=== PATIENT | male | born 1970 | race African-American/Black ===

== ENCOUNTER 2018-04-30 16:51 | Emergency (ER) | payer SELFPAY ==
[~2018-04-30] VITALS: Ht 172.7 cm; Wt 77.5 kg
[2018-05-01 00:27] VITALS: BP 121/67
== END 2018-05-01 00:28 | disposition home or self-care (01) ==
LOC: ER 16:51
DX: S60.211A Contusion of right wrist, initial encounter (principal); V18.0XXA Pedal cycle driver injured in noncollision transport accident in nontraffic accident, initial encounter; Y93.55 Activity, bike riding; Y92.89 Other specified places as the place of occurrence of the external cause
CPT/HCPCS: 29125; 73110; 99283

== ENCOUNTER 2021-01-01 06:02 | Emergency (ER) | payer OTHER ==
[~2021-01-01] VITALS: Ht 172.7 cm; Wt 77.0 kg
[2021-01-01 07:30] LABS: BASOPHILS % 0.6 % (0.0-2.0); EOSINOPHILS % 0.9 % (0.0-5.0); HEMATOCRIT. 43.9 % (42.0-52.0); HEMOGLOBIN. 14.7 g/dL (14.0-18.0); LYMPHOCYTES % 19.7 % (20.0-50.0); MEAN CORPUSCULAR HEMOGLOBIN 31.7 pg (28.0-32.0); MEAN CORPUSCULAR VOLUME 94.5 fL (80.0-94.0); MEAN PLATELET VOLUME 7.8 fl (7.4-10.4); MONOCYTES % 6.2 % (2.0-8.0); NEUTROPHILS % 72.6 % (40.0-76.0); PLATELET 277 x1000/uL (130-400); RED BLOOD CELL COUNT 4.65 mill/uL (4.7-6.1); RED CELL DISTRIBUTION WIDTH 14.2 % (11.6-14.6)
[2021-01-01 07:40] LABS: CLARITY URINE CLEAR (CLEAR); COLOR URINE YELLOW (YELLOW); KETONES URINE NEGATIVE (NEGATIVE); LEUKOCYTE ESTERASE URINE NEGATIVE (NEGATIVE); NITRITE URINE NEGATIVE (NEGATIVE); OCCULT BLOOD URINE NEGATIVE (NEGATIVE); PROTEIN URINE NEGATIVE (NEGATIVE); SPECIFIC GRAVITY URINE 1.012 (1.005-1.030); UROBILINOGEN URINE 0.2 E.U./dL (0.2-1.0)
[2021-01-01 07:41] LABS: CHLORIDE 110 mEq/L (98-107)
[2021-01-01] MEDS ORDERED: IBUP-2029 MT (10:09)
[2021-01-01 10:41] VITALS: BP 117/57
== END 2021-01-01 11:00 | disposition home or self-care (01) ==
LOC: ER 06:02
DX: N13.30 Unspecified hydronephrosis (principal)
CPT/HCPCS: 36415; 74176; 76705; 80053; 81003; 85025; 99285

== ENCOUNTER 2021-05-01 19:20 | Inpatient (IN) | payer OTHER ==
[~2021-05-01] VITALS: Ht 170.2 cm; Wt 79.8 kg
[~2021-05-01 19:20] MED LIST: IBUP-2029 MT
[2021-05-01] MEDS ORDERED: SODIUM CHLORIDE 0.9% 1,000 ML IV ONE (22:30)
[2021-05-01 22:47] LABS: BASOPHILS % 0.3 % (0.0-2.0); EOSINOPHILS % 0.3 % (0.0-5.0); HEMATOCRIT. 46.6 % (42.0-52.0); HEMOGLOBIN. 15.9 g/dL (14.0-18.0); LYMPHOCYTES % 9.2 % (20.0-50.0); MEAN CORPUSCULAR VOLUME 90.9 fL (80.0-94.0); MONOCYTES % 7.6 % (2.0-8.0); NEUTROPHILS % 82.6 % (40.0-76.0); PLATELET 284 x1000/uL (130-400); RED BLOOD CELL COUNT 5.13 mill/uL (4.7-6.1); RED CELL DISTRIBUTION WIDTH 14.4 % (11.6-14.6)
[2021-05-01 22:54] LABS: CLARITY URINE CLEAR (CLEAR); COLOR URINE YELLOW (YELLOW); KETONES URINE 1+ (NEGATIVE); LEUKOCYTE ESTERASE URINE NEGATIVE (NEGATIVE); NITRITE URINE NEGATIVE (NEGATIVE); OCCULT BLOOD URINE 2+ (NEGATIVE); PH URINE 5.5 (4.5-8.0); PROTEIN URINE 3+ (NEGATIVE); SPECIFIC GRAVITY URINE 1.034 (1.005-1.030); UROBILINOGEN URINE 0.2 E.U./dL (0.2-1.0)
[2021-05-01 22:55] LABS: CHLORIDE 105 mEq/L (98-107)
[2021-05-01] MEDS ORDERED: METOCLOPRAMIDE HCL 10MG/2ML VIAL IV ONE (23:15)
[2021-05-02] MEDS ORDERED: MORPHINE SULFATE 4 MG/ML CPJ (NOT FOR IM USE) IV ONE (02:00)
[2021-05-02] MEDS ORDERED: CEFTRIAXONE 1 G PREMIX 50 ML IV ONE (02:45)
[2021-05-02] MEDS ORDERED: IOHEXOL-300 100 ML BOTTLE ONE (06:33)
[2021-05-02] MEDS ORDERED: ACETAMINOPHEN 325MG TABLET PO PRN (08:30)
[2021-05-02] MEDS ORDERED: SODIUM CHLORIDE 0.9% 1,000 ML IV SCH (08:30)
[2021-05-02] MEDS ORDERED: DOCUSATE SODIUM 100MG CAPSULE PO PRN (08:30)
[2021-05-02] MEDS ORDERED: HYDROCODONE/ACETAMINOPHEN 5/325MG TABLET PO PRN (08:30)
[2021-05-02] MEDS ORDERED: IPRATROPIUM/ALBUTEROL 0.5-3(2.5)MG/3ML NEB HHN PRN (08:30)
[2021-05-02] MEDS ORDERED: MORPHINE SULFATE 2 MG/ML CPJ (NOT FOR IM USE) IV PRN (08:30)
[2021-05-02] MEDS ORDERED: MAGNESIUM/ALUMINUM HYDROXIDE/SIMETHICONE 30ML UDC PO PRN (08:30)
[2021-05-02] MEDS ORDERED: CLONIDINE 0.1MG TABLET PO PRN (08:30)
[2021-05-02] MEDS ORDERED: ONDANSETRON HCL 4MG/2ML INJ IV PRN (08:30)
[2021-05-02] MEDS ORDERED: NALOXONE HCL 0.4MG/ML VIAL IV PRN (08:45)
[2021-05-02 09:37] LABS: *AMPHETAMINES SCREEN URINE NEGATIVE (NEGATIVE)
[2021-05-02 09:38] LABS: *BARBITURATES SCREEN URINE NEGATIVE (NEGATIVE); *BENZODIAZEPINES SCREEN URINE NEGATIVE (NEGATIVE); *COCAINE SCREEN URINE NEGATIVE (NEGATIVE); METHADONE URINE SCREEN NEGATIVE (NEGATIVE); OPIATES URINE SCREEN PRESUMTIVE POSITIVE (NEGATIVE)
[2021-05-02 09:39] LABS: CANNABINOID URINE SCREEN PRESUMTIVE POSITIVE (NEGATIVE); PHENCYCLIDINE URINE SCREEN NEGATIVE (NEGATIVE)
[2021-05-02 10:00] VITALS: BP 120/69
[2021-05-02 13:01] LABS: BASOPHILS % 0.2 % (0.0-2.0); HEMATOCRIT. 43.6 % (42.0-52.0); HEMOGLOBIN. 14.9 g/dL (14.0-18.0); LYMPHOCYTES % 8.2 % (20.0-50.0); MEAN CORPUSCULAR HEMOGLOBIN 30.8 pg (28.0-32.0); MEAN CORPUSCULAR VOLUME 90.2 fL (80.0-94.0); MEAN PLATELET VOLUME 8.2 fl (7.4-10.4); MONOCYTES % 6.9 % (2.0-8.0); NEUTROPHILS % 84.7 % (40.0-76.0); PLATELET 253 x1000/uL (130-400); RED BLOOD CELL COUNT 4.83 mill/uL (4.7-6.1); RED CELL DISTRIBUTION WIDTH 14.2 % (11.6-14.6)
[2021-05-02 13:34] LABS: CHLORIDE 107 mEq/L (98-107)
[2021-05-02 13:41] LABS: ETHANOL BLOOD < 10 mg/dL
[2021-05-02 13:45] LABS: HDL CHOLESTEROL 64 mg/dL (40-59); LDL CHOLESTEROL 160 mg/dL (5-100)
[2021-05-02 13:54] LABS: HEPATITIS B SURFACE ANTIGEN NEGATIVE
[2021-05-02] MEDS ORDERED: LACTULOSE 20G/30ML UDC PO PRN (14:00)
[2021-05-02] MEDS: DEXT 5%/0.9% NACL 1,000 ML IV SCH (14:45)
[2021-05-02] MEDS ORDERED: GLYCERIN ADULT SUPPOSITORY PR NR (15:30)
[2021-05-02] MEDS: HYDROCODONE/ACETAMINOPHEN 5/325MG TABLET PO PRN (15:31)
[2021-05-02 16:00] VITALS: BP 126/73
[2021-05-02] MEDS: PANTOPRAZOLE SODIUM 40 MG/VIAL IV SCH (16:39)
[2021-05-02 18:11] LABS: CREATINE KINASE MB FRACTION 4.6 ng/mL (0.5-3.6)
[2021-05-02 18:23] LABS: CREATINE KINASE 1218 IU/L (39-308)
[2021-05-02 20:00] VITALS: BP 128/91
[2021-05-02] MEDS: CEFTRIAXONE 1,000 MG in DEXTROSE 5% WATER 50 ML IV SCH (22:30)
[2021-05-03] MEDS: DEXT 5%/0.9% NACL 1,000 ML IV SCH ×2 (00:45→10:15)
[2021-05-03 00:55] LABS: CREATINE KINASE MB FRACTION 3.7 ng/mL (0.5-3.6)
[2021-05-03 01:04] LABS: CREATINE KINASE 1153 IU/L (39-308)
[2021-05-03 04:00] VITALS: BP 119/73
[2021-05-03] MEDS ORDERED: NA PHOS,M-B/NA PHOS,DI-BA ENEMA 118ML PR ONE (04:30)
[2021-05-03 07:13] LABS: BASOPHILS % 0.2 % (0.0-2.0); EOSINOPHILS % 0.1 % (0.0-5.0); HEMATOCRIT. 43.5 % (42.0-52.0); HEMOGLOBIN. 14.7 g/dL (14.0-18.0); LYMPHOCYTES % 12.5 % (20.0-50.0); MEAN CORPUSCULAR HEMOGLOBIN 30.7 pg (28.0-32.0); MEAN CORPUSCULAR VOLUME 91.1 fL (80.0-94.0); MEAN PLATELET VOLUME 8.3 fl (7.4-10.4); MONOCYTES % 8.1 % (2.0-8.0); NEUTROPHILS % 79.1 % (40.0-76.0); PLATELET 255 x1000/uL (130-400); RED BLOOD CELL COUNT 4.78 mill/uL (4.7-6.1); RED CELL DISTRIBUTION WIDTH 13.9 % (11.6-14.6)
[2021-05-03 07:34] LABS: CHLORIDE 104 mEq/L (98-107)
[2021-05-03 08:00] VITALS: BP 132/74
[2021-05-03] MEDS: PANTOPRAZOLE SODIUM 40 MG/VIAL IV SCH ×2 (08:44→17:00)
[2021-05-03] MEDS: DOCUSATE SODIUM 100MG CAPSULE PO SCH ×2 (08:45→18:15)
[2021-05-03] MEDS ORDERED: POTASSIUM CHLORIDE 20MEQ TABLET SR PO SCH (09:00)
[2021-05-03 12:00] VITALS: BP 128/90
[2021-05-03] MEDS: HYDROCODONE/ACETAMINOPHEN 10/325MG TABLET PO PRN (12:56)
[2021-05-03] MEDS: METOCLOPRAMIDE HCL 10MG/2ML VIAL IV SCH ×2 (12:56→18:15)
[2021-05-03 16:00] VITALS: BP 135/77
[2021-05-03 20:00] VITALS: BP 145/80
[2021-05-04] VITALS: BP 140/80
[2021-05-04] MEDS: CEFTRIAXONE 1,000 MG in DEXTROSE 5% WATER 50 ML IV SCH ×2 (00:37→21:24)
[2021-05-04] MEDS: METOCLOPRAMIDE HCL 10MG/2ML VIAL IV SCH ×5 (00:37→23:23)
[2021-05-04 04:00] VITALS: BP 133/79
[2021-05-04] MEDS: DEXT 5%/0.9% NACL 1,000 ML IV SCH ×2 (06:40→18:17)
[2021-05-04 08:00] VITALS: BP 110/72
[2021-05-04] MEDS: PANTOPRAZOLE SODIUM 40 MG/VIAL IV SCH ×2 (09:05→18:17)
[2021-05-04] MEDS: DOCUSATE SODIUM 100MG CAPSULE PO SCH ×2 (09:05→18:18)
[2021-05-04 11:55] LABS: BASOPHILS % 0.4 % (0.0-2.0); EOSINOPHILS % 0.3 % (0.0-5.0); HEMOGLOBIN. 15.1 g/dL (14.0-18.0); LYMPHOCYTES % 18.1 % (20.0-50.0); MEAN CORPUSCULAR HEMOGLOBIN 30.3 pg (28.0-32.0); MEAN CORPUSCULAR VOLUME 92.4 fL (80.0-94.0); MEAN PLATELET VOLUME 8.2 fl (7.4-10.4); MONOCYTES % 10.1 % (2.0-8.0); NEUTROPHILS % 71.1 % (40.0-76.0); PLATELET 249 x1000/uL (130-400); RED BLOOD CELL COUNT 4.98 mill/uL (4.7-6.1); RED CELL DISTRIBUTION WIDTH 14.1 % (11.6-14.6)
[2021-05-04 12:00] VITALS: BP 135/78
[2021-05-04 12:24] LABS: CHLORIDE 102 mEq/L (98-107)
[2021-05-04] MEDS ORDERED: BISACODYL 10MG SUPP PR PRN (12:30)
[2021-05-04 12:40] LABS: CREATINE KINASE 371 IU/L (39-308)
[2021-05-04 16:00] VITALS: BP 128/72
[2021-05-04 20:00] VITALS: BP 129/78
[2021-05-04] MEDS ORDERED: POTASSIUM CHLORIDE 20MEQ TABLET SR PO NR (20:30)
[2021-05-05] VITALS: BP 121/52
[2021-05-05] MEDS: HYDROCODONE/ACETAMINOPHEN 5/325MG TABLET PO PRN (03:04)
[2021-05-05] MEDS: DEXT 5%/0.9% NACL 1,000 ML IV SCH ×3 (03:05→22:45)
[2021-05-05 03:15] VITALS: BP 146/81
[2021-05-05] MEDS: METOCLOPRAMIDE HCL 10MG/2ML VIAL IV SCH ×3 (05:15→18:26)
[2021-05-05 08:00] VITALS: BP 150/91
[2021-05-05 08:12] LABS: BASOPHILS % 0.4 % (0.0-2.0); EOSINOPHILS % 0.2 % (0.0-5.0); HEMATOCRIT. 43.3 % (42.0-52.0); HEMOGLOBIN. 14.8 g/dL (14.0-18.0); MEAN CORPUSCULAR HEMOGLOBIN 31.2 pg (28.0-32.0); MEAN PLATELET VOLUME 8.1 fl (7.4-10.4); MONOCYTES % 11.5 % (2.0-8.0); NEUTROPHILS % 69.9 % (40.0-76.0); PLATELET 273 x1000/uL (130-400); RED BLOOD CELL COUNT 4.75 mill/uL (4.7-6.1); RED CELL DISTRIBUTION WIDTH 13.9 % (11.6-14.6)
[2021-05-05 08:50] LABS: CHLORIDE 104 mEq/L (98-107)
[2021-05-05] MEDS: PANTOPRAZOLE SODIUM 40 MG/VIAL IV SCH ×2 (09:13→16:45)
[2021-05-05] MEDS: DOCUSATE SODIUM 100MG CAPSULE PO SCH ×2 (09:13→16:45)
[2021-05-05] MEDS: HYDROCODONE/ACETAMINOPHEN 10/325MG TABLET PO PRN (09:15)
[2021-05-05] MEDS ORDERED: KETOROLAC 30MG/ML VIAL IV PRN (15:30)
[2021-05-05] MEDS ORDERED: MAGNESIUM CITRATE 300ML SOLUTION PO NR (16:30)
[2021-05-05] MEDS ORDERED: NA PHOS,M-B/NA PHOS,DI-BA ENEMA 118ML PR NR (16:30)
[2021-05-05] MEDS ORDERED: MAGNESIUM/ALUMINUM HYDROXIDE/SIMETHICONE 30ML UDC PO NR (19:15)
[2021-05-05] MEDS ORDERED: TRAMADOL 50MG TABLET PO PRN (19:15)
[2021-05-05 20:00] VITALS: BP 141/89
[2021-05-05] MEDS: CEFTRIAXONE 1,000 MG in DEXTROSE 5% WATER 50 ML IV SCH (20:32)
[2021-05-05] MEDS ORDERED: VISCOUS LIDOCAINE 2% 15 ML UDC MM NR (21:00)
[2021-05-06] VITALS: BP 118/70
[2021-05-06] MEDS: METOCLOPRAMIDE HCL 10MG/2ML VIAL IV SCH ×5 (00:45→23:57)
[2021-05-06 04:00] VITALS: BP 148/86
[2021-05-06 07:24] LABS: BASOPHILS % 0.4 % (0.0-2.0); EOSINOPHILS % 0.3 % (0.0-5.0); HEMATOCRIT. 42.4 % (42.0-52.0); LYMPHOCYTES % 19.5 % (20.0-50.0); MEAN CORPUSCULAR HEMOGLOBIN 30.5 pg (28.0-32.0); MEAN CORPUSCULAR VOLUME 92.4 fL (80.0-94.0); MEAN PLATELET VOLUME 7.9 fl (7.4-10.4); MONOCYTES % 10.4 % (2.0-8.0); NEUTROPHILS % 69.4 % (40.0-76.0); PLATELET 274 x1000/uL (130-400); RED BLOOD CELL COUNT 4.59 mill/uL (4.7-6.1); RED CELL DISTRIBUTION WIDTH 13.4 % (11.6-14.6)
[2021-05-06 08:00] VITALS: BP_SYST 0; BP_SYST 121; BP_SYST 125; BP_DIAS 0; BP_DIAS 67; BP_DIAS 81
[2021-05-06] MEDS: PANTOPRAZOLE SODIUM 40 MG/VIAL IV SCH ×2 (08:35→17:36)
[2021-05-06] MEDS: ACETAMINOPHEN 325MG TABLET PO PRN ×2 (08:36→13:39)
[2021-05-06] MEDS: DOCUSATE SODIUM 100MG CAPSULE PO SCH ×2 (08:37→17:36)
[2021-05-06] MEDS: DEXT 5%/0.9% NACL 1,000 ML IV SCH ×2 (08:44→18:46)
[2021-05-06 09:52] LABS: CHLORIDE 106 mEq/L (98-107)
[2021-05-06 12:00] VITALS: BP 125/67
[2021-05-06 16:00] VITALS: BP 126/69
[2021-05-06 20:00] VITALS: BP 122/66
[2021-05-06] MEDS: CEFTRIAXONE 1,000 MG in DEXTROSE 5% WATER 50 ML IV SCH (22:25)
[2021-05-07] VITALS: BP 114/76
[2021-05-07] MEDS: DEXT 5%/0.9% NACL 1,000 ML IV SCH ×2 (03:47→09:40)
[2021-05-07 04:00] VITALS: BP 118/72
[2021-05-07] MEDS: METOCLOPRAMIDE HCL 10MG/2ML VIAL IV SCH ×2 (06:04→12:10)
[2021-05-07 07:52] LABS: BASOPHILS % 0.5 % (0.0-2.0); EOSINOPHILS % 0.6 % (0.0-5.0); HEMOGLOBIN. 13.2 g/dL (14.0-18.0); MEAN CORPUSCULAR VOLUME 91.7 fL (80.0-94.0); MEAN PLATELET VOLUME 8.2 fl (7.4-10.4); MONOCYTES % 8.2 % (2.0-8.0); NEUTROPHILS % 77.7 % (40.0-76.0); PLATELET 279 x1000/uL (130-400); RED BLOOD CELL COUNT 4.25 mill/uL (4.7-6.1); RED CELL DISTRIBUTION WIDTH 13.5 % (11.6-14.6)
[2021-05-07 08:00] VITALS: BP 121/74
[2021-05-07 08:50] LABS: CHLORIDE 105 mEq/L (98-107)
[2021-05-07 08:54] LABS: AMYLASE 125 IU/L (25-115)
[2021-05-07] MEDS: PANTOPRAZOLE SODIUM 40 MG/VIAL IV SCH (09:34)
[2021-05-07] MEDS: DOCUSATE SODIUM 100MG CAPSULE PO SCH (09:34)
[2021-05-07 12:00] VITALS: BP 125/71
[2021-05-07] MEDS ORDERED: POLY119P2 MT (12:08)
[2021-05-07] MEDS ORDERED: DOCU100T MT (12:08)
[2021-05-07] MEDS ORDERED: PROT40 MT (12:08)
[2021-05-07 12:39] VITALS: BP 125/71
== END 2021-05-07 14:30 | disposition home or self-care (01) | DRG 389 ==
LOC: ER 19:20 → MICUSO 05-02 03:25 → 4WST 05-02 10:28 → 6EST 05-05 22:40
PROVIDERS: ADMIT Internal Medicine; ATTEND Internal Medicine
DX: K56.41 Fecal impaction (principal); Q62.11 Congenital occlusion of ureteropelvic junction; N13.6 Pyonephrosis; R06.6 Hiccough; D72.829 Elevated white blood cell count, unspecified; R74.01 Elevation of levels of liver transaminase levels; F12.90 Cannabis use, unspecified, uncomplicated; R31.9 Hematuria, unspecified; E78.00 Pure hypercholesterolemia, unspecified; Z20.822 Contact with and (suspected) exposure to COVID-19; K21.9 Gastro-esophageal reflux disease without esophagitis; K29.70 Gastritis, unspecified, without bleeding; Z79.1 Long term (current) use of non-steroidal anti-inflammatories (NSAID); Z79.899 Other long term (current) drug therapy; Z86.19 Personal history of other infectious and parasitic diseases
CPT/HCPCS: 36415; 71045; 74018; 74177; 76770; 80048; 80053; 80061; 80305; 80320; 81003; 82150; 82550; 82553; 83036; 83605; 83880; 84145; 84443; 84484; 85025; 86705; 86709; 86803; 87340; 87426; 93005; 93970; 99285; C1893; C9113; J0696; J1885; J2270; J2765; J7030; J7042; J7060; Q9967; G0480

== ENCOUNTER 2021-07-30 05:42 | Emergency (ER) | payer OTHER ==
[~2021-07-30] VITALS: Ht 172.7 cm; Wt 78.5 kg
[~2021-07-30 05:42] MED LIST changes: +DOCU100T MT; -IBUP-2029 MT; +POLY119P2 MT; +PROT40 MT
[2021-07-30 05:50] VITALS: BP 142/92
[2021-07-30] MEDS ORDERED: ONDANSETRON HCL 4MG/2ML INJ IV STA (06:15)
[2021-07-30] MEDS ORDERED: KETOROLAC 30MG/ML VIAL IV STA (06:15)
[2021-07-30] MEDS ORDERED: SODIUM CHLORIDE 0.9% 1,000 ML IV ONE (06:15)
[2021-07-30 06:31] LABS: BASOPHILS % 0.5 % (0.0-2.0); EOSINOPHILS % 0.2 % (0.0-5.0); HEMATOCRIT. 42.4 % (42.0-52.0); HEMOGLOBIN. 14.3 g/dL (14.0-18.0); LYMPHOCYTES % 11.2 % (20.0-50.0); MEAN CORPUSCULAR VOLUME 92.2 fL (80.0-94.0); MEAN PLATELET VOLUME 8.1 fl (7.4-10.4); MONOCYTES % 5.6 % (2.0-8.0); NEUTROPHILS % 82.5 % (40.0-76.0); PLATELET 255 x1000/uL (130-400); RED CELL DISTRIBUTION WIDTH 14.3 % (11.6-14.6)
[2021-07-30 06:55] LABS: CLARITY URINE CLEAR (CLEAR); COLOR URINE YELLOW (YELLOW); KETONES URINE TRACE (NEGATIVE); LEUKOCYTE ESTERASE URINE NEGATIVE (NEGATIVE); NITRITE URINE NEGATIVE (NEGATIVE); OCCULT BLOOD URINE NEGATIVE (NEGATIVE); PROTEIN URINE 1+ (NEGATIVE); SPECIFIC GRAVITY URINE 1.027 (1.005-1.030); UROBILINOGEN URINE 0.2 E.U./dL (0.2-1.0)
[2021-07-30 07:09] LABS: CHLORIDE 111 mEq/L (98-107)
[2021-07-30 07:11] LABS: ETHANOL BLOOD < 10 mg/dL
[2021-07-30 07:27] LABS: *AMPHETAMINES SCREEN URINE NEGATIVE (NEGATIVE); *BARBITURATES SCREEN URINE NEGATIVE (NEGATIVE); *BENZODIAZEPINES SCREEN URINE NEGATIVE (NEGATIVE); *COCAINE SCREEN URINE NEGATIVE (NEGATIVE); METHADONE URINE SCREEN NEGATIVE (NEGATIVE); OPIATES URINE SCREEN NEGATIVE (NEGATIVE)
[2021-07-30 07:29] LABS: CANNABINOID URINE SCREEN PRESUMTIVE POSITIVE (NEGATIVE); PHENCYCLIDINE URINE SCREEN NEGATIVE (NEGATIVE)
[2021-07-30] MEDS ORDERED: ONDA4TAB5 MT (08:28)
[2021-07-30] MEDS ORDERED: OMEP40CA20 MT (08:28)
== END 2021-07-30 08:40 | disposition home or self-care (01) ==
LOC: ER 05:42
DX: R10.9 Unspecified abdominal pain (principal); F12.10 Cannabis abuse, uncomplicated
CPT/HCPCS: 36415; 74176; 80053; 80305; 80320; 81003; 83690; 85025; 96361; 96374; 96375; 99284; J1885; J2405; J7030; G0480

== ENCOUNTER 2022-12-22 07:32 | Inpatient (IN) | payer SELFPAY ==
[~2022-12-22] VITALS: Ht 175.3 cm; Wt 88.0 kg
[~2022-12-22 07:32] MED LIST changes: +OMEP40CA20 MT; +ONDA4TAB5 MT
[2022-12-22 08:09] LABS: BASOPHILS % 0.4 % (0.0-2.0); EOSINOPHILS % 0.4 % (0.0-5.0); HEMATOCRIT. 46.1 % (42.0-52.0); HEMOGLOBIN. 15.6 g/dL (14.0-18.0); LYMPHOCYTES % 13.3 % (20.0-50.0); MEAN CORPUSCULAR HEMOGLOBIN 31.1 pg (28.0-32.0); MEAN CORPUSCULAR HGB CONC 33.9 g/dL (31.0-37.0); MEAN CORPUSCULAR VOLUME 91.7 fL (80.0-94.0); MEAN PLATELET VOLUME 7.9 fl (7.4-10.4); MONOCYTES % 6.1 % (2.0-8.0); NEUTROPHILS % 79.8 % (40.0-76.0); PLATELET 304 x1000/uL (130-400); RED BLOOD CELL COUNT 5.02 mill/uL (4.7-6.1); RED CELL DISTRIBUTION WIDTH 14.5 % (11.6-14.6); WHITE BLOOD COUNT 16.7 x1000/uL (4.5-11.0)
[2022-12-22 08:32] LABS: CHLORIDE 109 mEq/L (98-107); INDEX HEMOLYSI 1 (1-3); INDEX ICTERIC 1 (1-4); INDEX LIPEMIC 1 (1-3); POTASSIUM 3.9 mEq/L (3.5-5.1); SODIUM 137 mEq/L (136-145)
[2022-12-22 08:39] LABS: ALANINE AMINOTRANSFERASE 32 IU/L (13-61); ALBUMIN 4.1 g/dL (3.4-5.0); ASPARTATE AMINOTRANSFERASE 25 IU/L (15-37); BILIRUBIN TOTAL 0.5 mg/dL (0.1-1.0); CALCIUM 9.4 mg/dL (8.5-10.1); CARBON DIOXIDE 21 mEq/L (21-32); CREATININE 1.2 mg/dL (0.6-1.3); GLUCOSE 118 mg/dL (70-105); PROTEIN TOTAL 8.5 g/dL (6.0-8.3); UREA NITROGEN BLOOD 15 mg/dL (7-21)
[2022-12-22] MEDS ORDERED: MORPHINE SULFATE 4 MG/ML CPJ (NOT FOR IM USE) IV STA (09:44)
[2022-12-22] MEDS ORDERED: KETOROLAC 60MG/2ML VIAL IM STA (09:44)
[2022-12-22] MEDS ORDERED: ONDANSETRON 4MG ODT PO STA (09:44)
[2022-12-22] MEDS ORDERED: SODIUM CHLORIDE 0.9% 1,000 ML IV ONE (09:45)
[2022-12-22] MEDS ORDERED: ONDANSETRON 4MG ODT PO NR (14:45)
[2022-12-22] MEDS ORDERED: MORPHINE SULFATE 4 MG/ML CPJ (NOT FOR IM USE) IV NR (14:45)
[2022-12-22] MEDS ORDERED: PANTOPRAZOLE SODIUM 40 MG/VIAL IV NR (14:45)
[2022-12-22 15:58] LABS: CLARITY URINE CLEAR (CLEAR); COLOR URINE DARK YELLOW (YELLOW); GLUCOSE URINE NEGATIVE (NEGATIVE); KETONES URINE 3+ (NEGATIVE); LEUKOCYTE ESTERASE URINE TRACE (NEGATIVE); NITRITE URINE NEGATIVE (NEGATIVE); OCCULT BLOOD URINE NEGATIVE (NEGATIVE); PROTEIN URINE 2+ (NEGATIVE); SPECIFIC GRAVITY URINE 1.038 (1.005-1.030)
[2022-12-22 16:00] LABS: WBC URINE 0-2 /hpf (0-2); YEAST URINE NONE SEEN
[2022-12-22 16:17] LABS: BACTERIA URINE 1+; RBC URINE 0-2 /hpf (0-2); SQUAMOUS EPITHELIAL CELL URINE FEW /lpf (RARE/1+)
[2022-12-22 16:18] LABS: MUCUS URINE 1+ /lpf (NONE/TRACE)
[2022-12-22 17:39] LABS: TROPONIN I HIGH SENSITIVITY 7 ng/L (<78)
[2022-12-22] MEDS ORDERED: ONDANSETRON HCL 4MG/2ML INJ IV PRN (22:15)
[2022-12-22] MEDS ORDERED: MORPHINE SULFATE 2 MG/ML CPJ (NOT FOR IM USE) IV NR (22:15)
[2022-12-22] MEDS ORDERED: NALOXONE HCL 0.4MG/ML VIAL IV PRN (22:30)
[2022-12-22 23:00] VITALS: BP 146/85; PULSE 69; RESP 18; TEMP 98.8
[2022-12-22] MEDS: PIPERACILLIN/TAZOBACTAM 3.375 G in DEXTROSE 5% WATER 50 ML IV SCH (23:58)
[2022-12-23] VITALS: BP 148/90; PULSE 70; RESP 19; TEMP 97.7
[2022-12-23 04:00] VITALS: BP 138/81; PULSE 68; RESP 19; TEMP 98.1
[2022-12-23] MEDS: HYDROCODONE/ACETAMINOPHEN 10/325MG TABLET PO PRN ×2 (05:59→17:05)
[2022-12-23 07:55] LABS: HEMATOCRIT. 46.1 % (42.0-52.0); HEMOGLOBIN. 15.1 g/dL (14.0-18.0); MEAN CORPUSCULAR HEMOGLOBIN 30.2 pg (28.0-32.0); MEAN CORPUSCULAR HGB CONC 32.9 g/dL (31.0-37.0); MEAN CORPUSCULAR VOLUME 91.9 fL (80.0-94.0); RED BLOOD CELL COUNT 5.02 mill/uL (4.7-6.1); RED CELL DISTRIBUTION WIDTH 14.9 % (11.6-14.6); WHITE BLOOD COUNT 14.3 x1000/uL (4.5-11.0)
[2022-12-23 07:56] LABS: LYMPHOCYTES % 8.4 % (20.0-50.0); MEAN PLATELET VOLUME 8.6 fl (7.4-10.4); MONOCYTES % 8.6 % (2.0-8.0); PLATELET 300 x1000/uL (130-400)
[2022-12-23 08:00] VITALS: BP 137/87; PULSE 84; RESP 21; TEMP 97.1
[2022-12-23 08:34] LABS: CHLORIDE 109 mEq/L (98-107); INDEX HEMOLYSI 1 (1-3); INDEX ICTERIC 1 (1-4); INDEX LIPEMIC 1 (1-3); POTASSIUM 3.9 mEq/L (3.5-5.1); SODIUM 137 mEq/L (136-145)
[2022-12-23 08:49] LABS: ALANINE AMINOTRANSFERASE 31 IU/L (13-61); ALBUMIN 4.2 g/dL (3.4-5.0); AMYLASE 78 IU/L (25-115); ASPARTATE AMINOTRANSFERASE 27 IU/L (15-37); BILIRUBIN DIRECT < 0.1 mg/dL (0.0-0.2); BILIRUBIN TOTAL 0.5 mg/dL (0.1-1.0); CALCIUM 9.9 mg/dL (8.5-10.1); CARBON DIOXIDE 24 mEq/L (21-32); CREATININE 0.9 mg/dL (0.6-1.3); GLUCOSE 128 mg/dL (70-105); PROTEIN TOTAL 8.8 g/dL (6.0-8.3); UREA NITROGEN BLOOD 21 mg/dL (7-21)
[2022-12-23] MEDS: PANTOPRAZOLE SODIUM 40 MG/VIAL IV SCH (11:00)
[2022-12-23 12:00] VITALS: BP 129/76; PULSE 82; RESP 20; TEMP 98.2
[2022-12-23] MEDS: TAMSULOSIN HCL 0.4MG SR CAPSULE PO SCH (12:00)
[2022-12-23] MEDS ORDERED: SODIUM CHLORIDE 0.9% 1,000 ML IV SCH (12:15)
[2022-12-23 12:58] LABS: HEPATITIS B SURFACE ANTIGEN NEGATIVE
[2022-12-23 13:28] LABS: HEPATITIS C VIR.AB 0.16 INDEXVAL (0.00-0.80)
[2022-12-23] MEDS: PIPERACILLIN/TAZOBACTAM 3.375 G in DEXTROSE 5% WATER 50 ML IV SCH ×2 (16:13→21:30)
[2022-12-23] MEDS: ONDANSETRON HCL 4MG/2ML INJ IV PRN ×2 (17:01→21:30)
[2022-12-23 20:00] VITALS: BP 139/79; PULSE 82; RESP 17; TEMP 99.2
[2022-12-24] VITALS: BP 147/78; PULSE 71; RESP 20; TEMP 97.4
[2022-12-24] MEDS ORDERED: ZOLPIDEM TARTRATE 5MG TABLET PO PRN (02:37)
[2022-12-24] MEDS: PIPERACILLIN/TAZOBACTAM 3.375 G in DEXTROSE 5% WATER 50 ML IV SCH ×2 (05:24→13:15)
[2022-12-24 08:00] VITALS: BP 126/84; PULSE 92; RESP 18; TEMP 98.7
[2022-12-24] MEDS: TAMSULOSIN HCL 0.4MG SR CAPSULE PO SCH (09:32)
[2022-12-24] MEDS: PANTOPRAZOLE SODIUM 40 MG/VIAL IV SCH (09:32)
[2022-12-24] MEDS: HYDROCODONE/ACETAMINOPHEN 10/325MG TABLET PO PRN (10:51)
[2022-12-24 12:00] VITALS: BP 154/88; PULSE 100; RESP 20; TEMP 99.3
[2022-12-24] MEDS ORDERED: TAMS-11 MT (13:15)
[2022-12-24 14:47] VITALS: BP 154/88; PULSE 100; TEMP 99.3; O2SAT 99
== END 2022-12-24 15:30 | disposition home or self-care (01) | DRG 249 ==
LOC: ER 07:32 → 6EST 21:26
PROVIDERS: ADMIT Internal Medicine; ATTEND Internal Medicine
DX: K52.9 Noninfective gastroenteritis and colitis, unspecified (principal); N13.1 Hydronephrosis with ureteral stricture, not elsewhere classified; D72.829 Elevated white blood cell count, unspecified
CPT/HCPCS: 36415; 71045; 74176; 76700; 80048; 80053; 80076; 81003; 82150; 84484; 85025; 86803; 87340; 93005; 99285; C9113; J1885; J2270; J2405; J2543; J7030; J7060; Q0162